=== PATIENT | male | born 1940 | race Caucasian/White ===

== ENCOUNTER 2018-12-10 20:13 | Inpatient (IN) | payer BC ==
[2018-12-10] MEDS: IPRATROPIUM (NEB) 0.5 MG/2.5 ML AMP INH (20:46)
[2018-12-10] MEDS: ALBUTEROL 0.5% (NEB) 2.5 MG/0.5 ML AMP INH (20:47)
[2018-12-10 21:13] LABS: ADD MAN DIFF? NO
[2018-12-10 21:19] LABS: WHITE BLOOD COUNT 7.9 10^3/ul (4.8-10.8)
[2018-12-10 21:19] LABS: BASOPHIL # 0.1 10^3/ul (0.0-0.1); BASOPHILS % 0.8 % (0.0-2.0); EOSINOPHILS # 0.3 10^3/ul (0.0-0.5); EOSINOPHILS % 3.2 % (0.0-7.0); HEMATOCRIT 40.2 % (42.0-52.0); HEMOGLOBIN 13.3 g/dl (14.0-18.0); LYMPHOCYTES # 1.8 10^3/ul (0.8-2.9); LYMPHOCYTES % 22.5 % (15.0-51.0); MEAN CORPUSCULAR HEMOGLOBIN 28.5 pg (29.0-33.0); MEAN CORPUSCULAR HGB CONC 33.1 g/dl (32.0-37.0); MEAN CORPUSCULAR VOLUME 86.3 fl (82.0-101.0); MEAN PLATELET VOLUME 9.5 fl (7.4-10.4); MONOCYTE # 0.8 10^3/ul (0.3-0.9); MONOCYTES % 10.7 % (0.0-11.0); NEUTROPHIL # 4.9 10^3/ul (1.6-7.5); NEUTROPHILS % 62.4 % (39.0-77.0); PLATELET COUNT 232 10^3/UL (140-415); RED BLOOD COUNT 4.66 10^6/ul (4.70-6.10); RED CELL DISTRIBUTION WIDTH 13.2 % (11.5-14.5)
[2018-12-10 21:37] LABS: ALANINE AMINOTRANSFERASE 21 IU/L (13-69); ALBUMIN 4.1 g/dl (3.3-4.9); ALBUMIN/GLOBULIN RATIO 1.24; ALKALINE PHOSPHATASE 84 IU/L (42-121); ANION GAP 8 (5-13); ASPARTATE AMINO TRANSFERASE 24 IU/L (15-46); BILIRUBIN,INDIRECT 0.7 mg/dl (0-1.1); BILIRUBIN,TOTAL 0.7 mg/dl (0.2-1.3); BLOOD UREA NITROGEN 13 mg/dl (7-20); CALCIUM 9.2 mg/dl (8.4-10.2); CARBON DIOXIDE 26 mmol/L (21-31); CHLORIDE 103 mmol/L (97-110); CREATININE 1.05 mg/dl (0.61-1.24); GLUCOSE 102 mg/dl (70-220); LIPASE 86 U/L (23-300); SODIUM 137 mmol/L (135-144); TOTAL PROTEIN 7.4 g/dl (6.1-8.1)
[2018-12-10 21:39] LABS: INR 0.95; PARTIAL THROMBOPLASTIN TIME 28.1 Sec (23.0-35.0); PROTIME 12.8 Sec (11.9-14.9)
[2018-12-10 21:40] LABS: POTASSIUM 3.6 mmol/L (3.5-5.1)
[2018-12-10] MEDS: SODIUM CHLORIDE 0.9% 1L BAG IV* (21:45)
[2018-12-10] MEDS: METHYLPREDNISOLONE 125 MG INJ IV (21:45)
[2018-12-10 21:49] LABS: TROPONIN-I < 0.012 ng/ml (0.000-0.120)
[2018-12-10] MEDS: IBUPROFEN 600 MG TAB PO (22:15)
[2018-12-10] MEDS: CEFTRIAXONE 1 GM/50 ML (PMX) 50 ML IVPB (22:50)
[2018-12-11] MEDS ORDERED: ACETAMINOPHEN 325 MG TAB PO
[2018-12-11] MEDS ORDERED: NACL 0.9% 3 ML SYG IV
[2018-12-11] MEDS ORDERED: ONDANSETRON 4 MG INJ IV
[2018-12-11] MEDS: ALBUTEROL/IPRATROPIUM (NEB) 3 ML AMP HHN ×4 (00:47→13:39)
[2018-12-11] MEDS ORDERED: LORAZEPAM 2 MG INJ IV (01:00)
[2018-12-11] MEDS: METHYLPREDNISOLONE 125 MG INJ IV ×3 (01:38→16:13)
[2018-12-11] MEDS: AZITHROMYCIN 250 MG TAB PO (04:59)
[2018-12-11] MEDS: PANTOPRAZOLE (EC) 40 MG TAB PO (06:19)
[2018-12-11 06:22] LABS: ADD MAN DIFF? NO
[2018-12-11 06:26] LABS: ABNORMAL IP MESSAGE 1; BASOPHILS % 0.2 % (0.0-2.0); HEMATOCRIT 39.5 % (42.0-52.0); HEMOGLOBIN 12.5 g/dl (14.0-18.0); LYMPHOCYTES # 0.3 10^3/ul (0.8-2.9); LYMPHOCYTES % 6.3 % (15.0-51.0); MEAN CORPUSCULAR HEMOGLOBIN 27.7 pg (29.0-33.0); MEAN CORPUSCULAR HGB CONC 31.6 g/dl (32.0-37.0); MEAN CORPUSCULAR VOLUME 87.6 fl (82.0-101.0); MEAN PLATELET VOLUME 9.4 fl (7.4-10.4); MONOCYTE # 0.1 10^3/ul (0.3-0.9); MONOCYTES % 1.7 % (0.0-11.0); NEUTROPHIL # 4.8 10^3/ul (1.6-7.5); NEUTROPHILS % 91.4 % (39.0-77.0); PLATELET COUNT 225 10^3/UL (140-415); POSITIVE DIFF @See below; RED BLOOD COUNT 4.51 10^6/ul (4.70-6.10); RED CELL DISTRIBUTION WIDTH 13.2 % (11.5-14.5)
[2018-12-11 06:26] LABS: WHITE BLOOD COUNT 5.2 10^3/ul (4.8-10.8)
[2018-12-11 06:45] LABS: ALANINE AMINOTRANSFERASE 18 IU/L (13-69); ALBUMIN 3.8 g/dl (3.3-4.9); ALBUMIN/GLOBULIN RATIO 1.26; ALKALINE PHOSPHATASE 64 IU/L (42-121); ANION GAP 10 (5-13); ASPARTATE AMINO TRANSFERASE 22 IU/L (15-46); BILIRUBIN,INDIRECT 0.4 mg/dl (0-1.1); BILIRUBIN,TOTAL 0.4 mg/dl (0.2-1.3); BLOOD UREA NITROGEN 13 mg/dl (7-20); CALCIUM 8.9 mg/dl (8.4-10.2); CARBON DIOXIDE 24 mmol/L (21-31); CHLORIDE 107 mmol/L (97-110); CHOL/HDL RATIO 1.8 RATIO; CHOLESTEROL 109 mg/dl (100-200); CREATININE 0.97 mg/dl (0.61-1.24); GLUCOSE 172 mg/dl (70-220); HDL CHOLESTEROL 59 mg/dl (31-75); LDL CHOLESTEROL,CALCULATED 42 mg/dl; POTASSIUM 4.1 mmol/L (3.5-5.1); SODIUM 141 mmol/L (135-144); TOTAL PROTEIN 6.8 g/dl (6.1-8.1); TRIGLYCERIDES 39 mg/dl (0-149)
[2018-12-11 07:11] LABS: THYROID STIMULATING HORMONE 0.404 MIU/L (0.465-4.680)
[2018-12-11 08:13] LABS: HEMOGLOBIN A1C 5.7 % (0-5.9)
[2018-12-11] MEDS: FINASTERIDE 5 MG TAB PO ×2 (09:00→13:19)
[2018-12-11] MEDS ORDERED: NON-FORMULARY/PATIENT OWN MED (Budesonide-Formoterol Fumarate* (Symbicort*) 2 PUFF) INHALATION (09:00)
[2018-12-11] MEDS: ASPIRIN (EC) 81 MG TAB PO (09:17)
[2018-12-11] MEDS: DULOXETINE 30 MG CAP DR PO (09:17)
[2018-12-11] MEDS: CEPASTAT LOZENGE MT ×3 (13:23→20:36)
[2018-12-11] MEDS: ARFORMOTEROL TARTRATE 15MCG/2 ML AMP INH ×2 (16:15→20:04)
[2018-12-11] MEDS: BUDESONIDE (NEB) 0.5MG/2ML AMP INH ×2 (16:24→20:04)
[2018-12-11] MEDS: CEFTRIAXONE 1 GM/50 ML (PMX) 50 ML IVPB (20:29)
[2018-12-11] MEDS: ALFUZOSIN (SR) 10 MG TAB PO (20:30)
[2018-12-11] MEDS: ATORVASTATIN 10 MG TAB PO (20:30)
[2018-12-11] MEDS: MONTELUKAST 10 MG TAB PO (21:00)
[2018-12-12] MEDS: METHYLPREDNISOLONE 125 MG INJ IV ×2 (00:04→08:42)
[2018-12-12] MEDS: PANTOPRAZOLE (EC) 40 MG TAB PO (05:08)
[2018-12-12 06:24] LABS: ADD MAN DIFF? NO
[2018-12-12 06:32] LABS: WHITE BLOOD COUNT 12.2 10^3/ul (4.8-10.8)
[2018-12-12 06:32] LABS: BASOPHILS % 0.1 % (0.0-2.0); HEMATOCRIT 35.8 % (42.0-52.0); HEMOGLOBIN 11.6 g/dl (14.0-18.0); LYMPHOCYTES # 0.6 10^3/ul (0.8-2.9); LYMPHOCYTES % 4.9 % (15.0-51.0); MEAN CORPUSCULAR HEMOGLOBIN 28.1 pg (29.0-33.0); MEAN CORPUSCULAR HGB CONC 32.4 g/dl (32.0-37.0); MEAN CORPUSCULAR VOLUME 86.7 fl (82.0-101.0); MEAN PLATELET VOLUME 9.7 fl (7.4-10.4); MONOCYTE # 0.7 10^3/ul (0.3-0.9); MONOCYTES % 5.4 % (0.0-11.0); NEUTROPHIL # 10.9 10^3/ul (1.6-7.5); NEUTROPHILS % 89.3 % (39.0-77.0); PLATELET COUNT 240 10^3/UL (140-415); RED BLOOD COUNT 4.13 10^6/ul (4.70-6.10); RED CELL DISTRIBUTION WIDTH 13.2 % (11.5-14.5)
[2018-12-12 06:46] LABS: MAGNESIUM 2.2 mg/dl (1.7-2.5)
[2018-12-12 06:46] LABS: PHOSPHORUS 3.7 mg/dl (2.5-4.9)
[2018-12-12 07:04] LABS: ANION GAP 6 (5-13); BLOOD UREA NITROGEN 21 mg/dl (7-20); CALCIUM 8.9 mg/dl (8.4-10.2); CARBON DIOXIDE 23 mmol/L (21-31); CHLORIDE 111 mmol/L (97-110); CREATININE 0.91 mg/dl (0.61-1.24); GLUCOSE 141 mg/dl (70-220); POTASSIUM 4.4 mmol/L (3.5-5.1); SODIUM 140 mmol/L (135-144)
[2018-12-12] MEDS: DULOXETINE 30 MG CAP DR PO (08:41)
[2018-12-12] MEDS: FINASTERIDE 5 MG TAB PO (08:41)
[2018-12-12] MEDS: ASPIRIN (EC) 81 MG TAB PO (08:41)
[2018-12-12] MEDS: ARFORMOTEROL TARTRATE 15MCG/2 ML AMP INH ×2 (08:51→20:55)
[2018-12-12] MEDS: BUDESONIDE (NEB) 0.5MG/2ML AMP INH ×2 (08:51→20:54)
[2018-12-12] MEDS: AZITHROMYCIN 250 MG TAB PO (11:27)
[2018-12-12] MEDS: ALBUTEROL/IPRATROPIUM (NEB) 3 ML AMP HHN ×2 (15:09→20:54)
[2018-12-12] MEDS: CEPASTAT LOZENGE MT ×2 (16:48)
[2018-12-12] MEDS: ALFUZOSIN (SR) 10 MG TAB PO (20:55)
[2018-12-12] MEDS: CEFTRIAXONE 1 GM/50 ML (PMX) 50 ML IVPB (20:55)
[2018-12-12] MEDS: MONTELUKAST 10 MG TAB PO (20:56)
[2018-12-12] MEDS: ATORVASTATIN 10 MG TAB PO (20:56)
[2018-12-13 05:30] LABS: ADD MAN DIFF? NO
[2018-12-13] MEDS: PANTOPRAZOLE (EC) 40 MG TAB PO (05:35)
[2018-12-13 05:43] LABS: BASOPHILS % 0.2 % (0.0-2.0); HEMATOCRIT 37.8 % (42.0-52.0); HEMOGLOBIN 12.1 g/dl (14.0-18.0); LYMPHOCYTES # 1.1 10^3/ul (0.8-2.9); LYMPHOCYTES % 8.7 % (15.0-51.0); MEAN CORPUSCULAR HEMOGLOBIN 28.2 pg (29.0-33.0); MEAN CORPUSCULAR VOLUME 88.1 fl (82.0-101.0); MONOCYTE # 0.7 10^3/ul (0.3-0.9); MONOCYTES % 5.4 % (0.0-11.0); NEUTROPHIL # 10.5 10^3/ul (1.6-7.5); PLATELET COUNT 251 10^3/UL (140-415); RED BLOOD COUNT 4.29 10^6/ul (4.70-6.10); RED CELL DISTRIBUTION WIDTH 13.4 % (11.5-14.5)
[2018-12-13 05:43] LABS: WHITE BLOOD COUNT 12.3 10^3/ul (4.8-10.8)
[2018-12-13 05:57] LABS: PHOSPHORUS 3.6 mg/dl (2.5-4.9)
[2018-12-13 05:57] LABS: MAGNESIUM 2.4 mg/dl (1.7-2.5)
[2018-12-13 06:00] LABS: ANION GAP 6 (5-13); BLOOD UREA NITROGEN 23 mg/dl (7-20); CALCIUM 9.3 mg/dl (8.4-10.2); CARBON DIOXIDE 29 mmol/L (21-31); CHLORIDE 108 mmol/L (97-110); CREATININE 1.01 mg/dl (0.61-1.24); GLUCOSE 128 mg/dl (70-220); SODIUM 143 mmol/L (135-144)
[2018-12-13 06:02] LABS: POTASSIUM 4.5 mmol/L (3.5-5.1)
[2018-12-13] MEDS: FINASTERIDE 5 MG TAB PO (08:27)
[2018-12-13] MEDS: ASPIRIN (EC) 81 MG TAB PO (08:27)
[2018-12-13] MEDS: DULOXETINE 30 MG CAP DR PO (08:27)
[2018-12-13] MEDS: predniSONE 20 MG TAB PO (08:27)
[2018-12-13] MEDS: AZITHROMYCIN 250 MG TAB PO (08:27)
[2018-12-13] MEDS: ARFORMOTEROL TARTRATE 15MCG/2 ML AMP INH (10:21)
[2018-12-13] MEDS: BUDESONIDE (NEB) 0.5MG/2ML AMP INH (10:21)
== END 2018-12-13 17:05 | disposition home or self-care (01) | DRG 192 ==
LOC: E/R 20:13 → 2NE 23:25
PROVIDERS: Family Medicine
DX: J44.1 Chronic obstructive pulmonary disease with (acute) exacerbation (principal); J84.10 Pulmonary fibrosis, unspecified; E05.90 Thyrotoxicosis, unspecified without thyrotoxic crisis or storm; D64.9 Anemia, unspecified; J20.9 Acute bronchitis, unspecified; J44.0 Chronic obstructive pulmonary disease with (acute) lower respiratory infection; F39 Unspecified mood [affective] disorder; N40.0 Benign prostatic hyperplasia without lower urinary tract symptoms; E78.5 Hyperlipidemia, unspecified; K21.9 Gastro-esophageal reflux disease without esophagitis; Z87.891 Personal history of nicotine dependence
CPT/HCPCS: 36415; 71045; 71046; 80048; 80053; 80061; 83036; 83605; 83690; 83735; 84100; 84443; 84484; 85025; 85610; 85730; 87040-91; 87400; 93005; 94640; 94644; 94664; 96374; 96375; 99285-25